=== PATIENT | female | born 1965 | race American Indian/Alaskan Native ===

== ENCOUNTER 2016-06-05 11:06 | Emergency (ER) | payer OTHER ==
[2016-06-05 12:35] VITALS: BP 140/112
--- NOTE | 2016-06-05 16:13 | Emergency Department Report ---
HPI - General Chief Complaint: Sore Throat Time Seen by Provider: 06/05/16 16:03 - HPI HPI: Patient is a 50-year-old female who presents to ED for medication refill. Patient states she has not been able to make it to her primary care physician. she will likely refill of her medications. Patient denies fever/nausea/vomiting/cough/throat pain/shortness of breath/ dizziness/headache/blurred vision ED Past Medical Hx - Past Medical History Hx Hypertension: Yes Hx Psychiatric Treatment: Yes (DEPRESSION/anxiety) - Surgical History Additional Surgical History: Tubaligation, Umbilical hernia repair - Social History Smoking Status: Never Smoker Substance Use Type: None - Medications Home Medications: Home Medications Medication Instructions Recorded Confirmed Last Taken Type Pravastatin (Nf) [Pravachol] 40 mg PO QHS #90 tablet 08/06/15 Unknown Rx amLODIPine [Norvasc] 10 mg PO QDAY #90 tablet 08/06/15 Unknown Rx traMADol [Ultram 50 MG tab] 50 mg PO Q6HR PRN #60 tablet 08/06/15 Unknown Rx Diphenhydramine HCl [Benadryl 25 mg PO PRN #30 tablet 01/28/16 Unknown Rx Allergy TAB] Labetalol [Normodyne TAB] 400 mg PO BID 90 Days 01/28/16 Unknown Rx Aspirin [Aspirin TAB] 325 mg PO QDAY 90 Days 06/05/16 Unknown Rx Clopidogrel [Plavix] 75 mg PO QDAY #90 tablet 06/05/16 Unknown Rx Hydrochlorothiazide [HCTZ] 25 mg PO QDAY #30 tablet 06/05/16 Unknown Rx Rosuvastatin (Nf) [Crestor] 20 mg PO QHS #90 tablet 06/05/16 Unknown Rx amLODIPine [Norvasc] 10 mg PO DAILY #90 tab 06/05/16 Unknown Rx ED Review of Systems ROS: Stated complaint: THROAT PAIN Other details as noted in HPI Constitutional: denies: chills, fever Eyes: denies: eye pain, eye discharge, vision change ENT: denies: ear pain, throat pain Respiratory: denies: cough, shortness of breath, SOB with exertion, SOB at rest , wheezing Cardiovascular: denies: chest pain, palpitations Endocrine: no symptoms reported Gastrointestinal: denies: abdominal pain, nausea, vomiting, diarrhea Genitourinary: denies: urgency, dysuria, discharge Musculoskeletal: denies: back pain, joint swelling, arthralgia Skin: denies: rash, lesions, pruritus Neurological: denies: headache, weakness, numbness, paresthesias, confusion, abnormal gait Psychiatric: denies: anxiety, depression Hematological/Lymphatic: denies: easy bleeding, easy bruising, swollen glands Physical Exam - Physical Exam Vital Signs: Vital Signs 06/05/16 12:24 Temperature 97.8 F Pulse Rate 54 L Respiratory 18 Rate Blood Pressure 140/112 O2 Sat by Pulse 100 Oximetry General: Patient alert and oriented 3 Physical Exam: GENERAL: Alert and oriented x3, no apparent distress, Normal Gait, atraumatic. HEAD: Head is normocephalic and a-traumatic. EYES: Extra ocular muscles are intact. Pupils are equal, round, and reactive to light and accommodation. EARS: symetrical, atraumatic, non tender, ear canal clear and moderate cerumen, tympanic membrance non inflamed. gross auditory nml bilaterally. NOSE: Nose symetrical, Nontender,Nares appeared normal. MOUTH:Mouth is well hydrated and without lesions. Tonsils nonerythematous or swollen, Uvula midline, Tongue not elevated. Mucous membranes are moist. Posterior pharynx clear, no exudate or lesions. Patent airways. NECK: Supple. Non edematous, No carotid bruits. No lymphadenopathy or thyromegaly. LUNGS: Symetrical with respiration, No wheezing, no rales or crackles, CTAB. HEART: S1, S2 present, regular rate and rhythm without murmur, no rubs, no gallops. ABDOMEN: No organomegaly was noted,Positive bowel sounds, soft, and non- distended. . Nontender to palpation on all Quadrants, NO CVA tenderness. EXTREMITIES/MUSCULOSKELETAL: No cyanosis, clubbing, rash, lesions or edema. Full ROM bilaterally. UE/LE Pulses 2+ bilaterally. NEUROLOGIC: No focal Deficit, Cranial nerves II through XII are grossly intact. No loss of sensation, PSYCHIATRIC: Mood is congruent with affect, denies suicidal or homicidal ideations. SKIN: Warm and dry, No lesions, No ulceration or induration present. ED Course Vital Signs 06/05/16 12:24 Temperature 97.8 F Pulse Rate 54 L Respiratory 18 Rate Blood Pressure 140/112 O2 Sat by Pulse 100 Oximetry ED Medical Decision Making - Medical Decision Making 50-year-old female here for medication refill. Discussed patient to follow up with her primary care physician. referrals given to follow-up with. Discussed with patient that we'll not refill her medication continuously she needs to follow up with a primary care. Critical care attestation.: If time is entered above; I have spent that time in minutes in the direct care of this critically ill patient, excluding procedure time. ED Disposition Clinical Impression: Medication refill Disposition: DISCHARGED TO HOME OR SELFCARE Is pt being admited?: No Does the pt Need Aspirin: No Condition: Stable Additional Instructions: Follow-up with her primary care physician. Take your medication medication as prescribed Prescriptions: Rosuvastatin (Nf) [Crestor] 20 mg PO QHS #90 tablet amLODIPine [Norvasc] 10 mg PO DAILY #90 tab Aspirin [Aspirin TAB] 325 mg PO QDAY 90 Days Clopidogrel [Plavix] 75 mg PO QDAY #90 tablet Hydrochlorothiazide [HCTZ] 25 mg PO QDAY #30 tablet Referrals: PRIMARY CARE, [Primary Care Provider] - 3-5 Days ELHAM CUNNINGHAM MD [Referring] - 3-5 Days BETO CANSECO MD [Referring] - 3-5 Days SINDY MIRELES MD [Referring] - 3-5 Days [facility] [Outside] - 3-5 Days [facility] [Outside] - 3-5 Days [facility] [Outside] - 3-5 Days [facility] [Outside] - 3-5 Days Forms: Work/School Release Form(ED) Time of Disposition: 16:22
== END 2016-06-05 16:34 | disposition home or self-care (01) ==
LOC: ED 11:06
DX: Z76.0 Encounter for issue of repeat prescription (principal); F32.9 Major depressive disorder, single episode, unspecified; F41.9 Anxiety disorder, unspecified; I10 Essential (primary) hypertension; Z98.51 Tubal ligation status; Z79.899 Other long term (current) drug therapy; Z79.82 Long term (current) use of aspirin; Z88.8 Allergy status to other drugs, medicaments and biological substances
CPT/HCPCS: 99282

== ENCOUNTER 2016-07-17 10:28 | Emergency (ER) | payer OTHER ==
[2016-07-17 11:12] VITALS: BP 129/92
--- NOTE | 2016-07-17 12:22 | Emergency Department Report ---
- General Chief complaint: Skin/Abscess/Foreign Body Stated complaint: BREAST PAIN Time Seen by Provider: 07/17/16 12:02 Source: patient Mode of arrival: Ambulatory Limitations: No Limitations - History of Present Illness Initial comments: pt c/o rt painful breast lump for the pat several days. pt relates torri she has a hx cystic breast issues and that it always resolves itself. Patient states this time pain is more severe. Patient denies fever, chills, or breast discharge. MD complaint: other (tender area) -: days(s) (yesterday) Tetanus Up to Date: no Severity: moderate Severity scale (0 -10): 4 Quality: aching Consistency: now resolved Associated symptoms: denies other symptoms Treatments Prior to Arrival: none - Related Data Previous Rx's Medication Instructions Recorded Last Taken Type Pravastatin (Nf) [Pravachol] 40 mg PO QHS #90 tablet 08/06/15 Unknown Rx amLODIPine [Norvasc] 10 mg PO QDAY #90 tablet 08/06/15 Unknown Rx traMADol [Ultram 50 MG tab] 50 mg PO Q6HR PRN #60 tablet 08/06/15 Unknown Rx Diphenhydramine HCl [Benadryl 25 mg PO PRN #30 tablet 01/28/16 Unknown Rx Allergy TAB] Labetalol [Normodyne TAB] 400 mg PO BID 90 Days 01/28/16 Unknown Rx Aspirin [Aspirin TAB] 325 mg PO QDAY 90 Days 06/05/16 Unknown Rx Clopidogrel [Plavix] 75 mg PO QDAY #90 tablet 06/05/16 Unknown Rx Hydrochlorothiazide [HCTZ] 25 mg PO QDAY #30 tablet 06/05/16 Unknown Rx Rosuvastatin (Nf) [Crestor] 20 mg PO QHS #90 tablet 06/05/16 Unknown Rx amLODIPine [Norvasc] 10 mg PO DAILY #90 tab 06/05/16 Unknown Rx Naproxen 500 gm MC BID #20 powder 07/17/16 Unknown Rx Allergies Allergy/AdvReac Type Severity Reaction Status Date / Time some b/p meds Allergy Unknown Uncoded 06/05/16 12:29 Abscess Boil HPI - HPI Chief Complaint: Skin/Abscess/Foreign Body Stated Complaint: BREAST PAIN Time Seen by Provider: 07/17/16 12:02 Duration: 1 Day Location: Other (right breast) History: Yes Previous History, No Fever, No Pain, No Purulent Drainage, No Numbness, No Foreign Body, No Insect Bite Home Medications: Previous Rx's Medication Instructions Recorded Last Taken Type Pravastatin (Nf) [Pravachol] 40 mg PO QHS #90 tablet 08/06/15 Unknown Rx amLODIPine [Norvasc] 10 mg PO QDAY #90 tablet 08/06/15 Unknown Rx traMADol [Ultram 50 MG tab] 50 mg PO Q6HR PRN #60 tablet 08/06/15 Unknown Rx Diphenhydramine HCl [Benadryl 25 mg PO PRN #30 tablet 01/28/16 Unknown Rx Allergy TAB] Labetalol [Normodyne TAB] 400 mg PO BID 90 Days 01/28/16 Unknown Rx Aspirin [Aspirin TAB] 325 mg PO QDAY 90 Days 06/05/16 Unknown Rx Clopidogrel [Plavix] 75 mg PO QDAY #90 tablet 06/05/16 Unknown Rx Hydrochlorothiazide [HCTZ] 25 mg PO QDAY #30 tablet 06/05/16 Unknown Rx Rosuvastatin (Nf) [Crestor] 20 mg PO QHS #90 tablet 06/05/16 Unknown Rx amLODIPine [Norvasc] 10 mg PO DAILY #90 tab 06/05/16 Unknown Rx Naproxen 500 gm MC BID #20 powder 07/17/16 Unknown Rx Allergies/Adverse Reactions: Allergies Allergy/AdvReac Type Severity Reaction Status Date / Time some b/p meds Allergy Unknown Uncoded 06/05/16 12:29 ED Review of Systems ROS: Stated complaint: BREAST PAIN Other details as noted in HPI Constitutional: no symptoms reported Eyes: as per HPI ENT: as per HPI Respiratory: denies: cough, orthopnea, shortness of breath, SOB with exertion, SOB at rest, stridor, wheezing Cardiovascular: denies: chest pain, palpitations Gastrointestinal: denies: abdominal pain, nausea, vomiting, diarrhea Skin: lesions. denies: rash, change in color, pruritus Neurological: denies: headache, paresthesias ED Past Medical Hx - Past Medical History Previous Medical History?: Yes Hx Hypertension: Yes Hx Psychiatric Treatment: Yes (DEPRESSION/anxiety) - Surgical History Past Surgical History?: Yes Additional Surgical History: Tubaligation, Umbilical hernia repair - Social History Smoking Status: Never Smoker Substance Use Type: Alcohol - Medications Home Medications: Home Medications Medication Instructions Recorded Confirmed Last Taken Type Pravastatin (Nf) [Pravachol] 40 mg PO QHS #90 tablet 08/06/15 Unknown Rx amLODIPine [Norvasc] 10 mg PO QDAY #90 tablet 08/06/15 Unknown Rx traMADol [Ultram 50 MG tab] 50 mg PO Q6HR PRN #60 tablet 08/06/15 Unknown Rx Diphenhydramine HCl [Benadryl 25 mg PO PRN #30 tablet 01/28/16 Unknown Rx Allergy TAB] Labetalol [Normodyne TAB] 400 mg PO BID 90 Days 01/28/16 Unknown Rx Aspirin [Aspirin TAB] 325 mg PO QDAY 90 Days 06/05/16 Unknown Rx Clopidogrel [Plavix] 75 mg PO QDAY #90 tablet 06/05/16 Unknown Rx Hydrochlorothiazide [HCTZ] 25 mg PO QDAY #30 tablet 06/05/16 Unknown Rx Rosuvastatin (Nf) [Crestor] 20 mg PO QHS #90 tablet 06/05/16 Unknown Rx amLODIPine [Norvasc] 10 mg PO DAILY #90 tab 06/05/16 Unknown Rx Naproxen 500 gm MC BID #20 powder 07/17/16 Unknown Rx ED Physical Exam - General Limitations: No Limitations General appearance: alert, in no apparent distress - Head Head exam: Present: atraumatic - Eye Eye exam: Present: normal appearance, PERRL, EOMI - ENT ENT exam: Present: normal exam, mucous membranes dry - Neck Neck exam: Present: normal inspection, full ROM. Absent: tenderness, meningismus, lymphadenopathy - Respiratory Respiratory exam: Present: normal lung sounds bilaterally. Absent: respiratory distress - Cardiovascular Cardiovascular Exam: Present: regular rate - GI/Abdominal GI/Abdominal exam: Present: soft. Absent: distended, tenderness, guarding, rebound, rigid - Back Exam Back exam: Present: normal inspection. Absent: CVA tenderness (R), CVA tenderness (L) - Neurological Exam Neurological exam: Present: alert, oriented X3, normal gait - Skin Skin exam: Present: warm, dry, intact, normal color. Absent: rash, erythema, vesicles - Other Other exam information: Both patient's breast examination with lobby attendant in room. There is no noted adenopathy, no areas of tenderness, warmth, or erythema were noted no mass was palpated. Tail of [place] clear. No nipple discharge. No asymmetry noted. No skin puckering noted. ED Course Vital Signs 07/17/16 11:07 Temperature 99.2 F Pulse Rate 62 Respiratory 18 Rate Blood Pressure 129/92 O2 Sat by Pulse 100 Oximetry Critical care attestation.: If time is entered above; I have spent that time in minutes in the direct care of this critically ill patient, excluding procedure time. ED Disposition Clinical Impression: Fibrocystic breast Disposition: DISCHARGED TO HOME OR SELFCARE Is pt being admited?: No Condition: Stable Instructions: Breast Mass (ED) Prescriptions: Naproxen 500 gm MC BID #20 powder Referrals: PRIMARY CARE, [Primary Care Provider] - 3-5 Days
== END 2016-07-17 12:41 | disposition home or self-care (01) ==
LOC: ED 10:28
DX: N60.11 Diffuse cystic mastopathy of right breast (principal); I10 Essential (primary) hypertension; F41.9 Anxiety disorder, unspecified; F32.9 Major depressive disorder, single episode, unspecified; Z79.82 Long term (current) use of aspirin; Z88.8 Allergy status to other drugs, medicaments and biological substances
CPT/HCPCS: 99282

== ENCOUNTER 2016-09-14 12:35 | Emergency (ER) | payer OTHER ==
[2016-09-14 12:50] VITALS: BP 121/90
--- NOTE | 2016-09-14 13:02 | Emergency Department Report ---
HPI - General Chief Complaint: Medical Clearance Time Seen by Provider: 09/14/16 12:55 - HPI HPI: Patient here for refill of prescription medications alone, patient denies any signs or symptoms. ED Past Medical Hx - Past Medical History Hx Hypertension: Yes Hx Psychiatric Treatment: Yes (DEPRESSION/anxiety) - Surgical History Additional Surgical History: Tubaligation, Umbilical hernia repair - Social History Smoking Status: Current Every Day Smoker - Medications Home Medications: Home Medications Medication Instructions Recorded Confirmed Last Taken Type Pravastatin (Nf) [Pravachol] 40 mg PO QHS #90 tablet 08/06/15 Unknown Rx amLODIPine [Norvasc] 10 mg PO QDAY #90 tablet 08/06/15 Unknown Rx traMADol [Ultram 50 MG tab] 50 mg PO Q6HR PRN #60 tablet 08/06/15 Unknown Rx Diphenhydramine HCl [Benadryl 25 mg PO PRN #30 tablet 01/28/16 Unknown Rx Allergy TAB] Labetalol [Normodyne TAB] 400 mg PO BID 90 Days 01/28/16 Unknown Rx Aspirin [Aspirin TAB] 325 mg PO QDAY 90 Days 06/05/16 Unknown Rx Clopidogrel [Plavix] 75 mg PO QDAY #90 tablet 06/05/16 Unknown Rx Hydrochlorothiazide [HCTZ] 25 mg PO QDAY #30 tablet 06/05/16 Unknown Rx Rosuvastatin (Nf) [Crestor] 20 mg PO QHS #90 tablet 06/05/16 Unknown Rx amLODIPine [Norvasc] 10 mg PO DAILY #90 tab 06/05/16 Unknown Rx Naproxen 500 gm MC BID #20 powder 07/17/16 Unknown Rx Clopidogrel Bisulfate [Plavix] 75 mg PO QDAY #30 tablet 09/14/16 Unknown Rx Hydrochlorothiazide [HCTZ] 25 mg PO QDAY #30 tablet 09/14/16 Unknown Rx Naproxen [Naprosyn TAB] 500 mg PO BID #20 tablet 09/14/16 Unknown Rx amLODIPine [Norvasc] 10 mg PO DAILY #30 tab 09/14/16 Unknown Rx ED Review of Systems ROS: Stated complaint: RX REFILL Other details as noted in HPI Constitutional: denies: chills, fever Eyes: denies: eye pain, eye discharge, vision change ENT: denies: ear pain, throat pain Respiratory: denies: cough, shortness of breath, wheezing Cardiovascular: denies: chest pain, palpitations Endocrine: no symptoms reported Gastrointestinal: denies: abdominal pain, nausea, diarrhea Genitourinary: denies: urgency, dysuria, discharge Musculoskeletal: denies: back pain, joint swelling, arthralgia Skin: denies: rash, lesions Neurological: denies: headache, weakness, paresthesias Psychiatric: denies: anxiety, depression Hematological/Lymphatic: denies: easy bleeding, easy bruising Physical Exam - Physical Exam Vital Signs: Vital Signs 09/14/16 12:45 Temperature 97.7 F Pulse Rate 66 Respiratory 16 Rate Blood Pressure 121/90 O2 Sat by Pulse 100 Oximetry General: Patient awake alert and oriented normotensive normal cardiac, afebrile well- hydrated was cleared lung sounds bilaterally on estrada. Abdomen soft nontender. Skin clear, no rashes no lesions no diaphoresis. Patient has no focal neuro deficit has normal gait and speech. ED Course Vital Signs 09/14/16 12:45 Temperature 97.7 F Pulse Rate 66 Respiratory 16 Rate Blood Pressure 121/90 O2 Sat by Pulse 100 Oximetry Critical care attestation.: If time is entered above; I have spent that time in minutes in the direct care of this critically ill patient, excluding procedure time. ED Disposition Clinical Impression: Refill clinic medication management patient Disposition: DISCHARGED TO HOME OR SELFCARE Is pt being admited?: No Condition: Stable Prescriptions: amLODIPine [Norvasc] 10 mg PO DAILY #30 tab Clopidogrel Bisulfate [Plavix] 75 mg PO QDAY #30 tablet Hydrochlorothiazide [HCTZ] 25 mg PO QDAY #30 tablet Naproxen [Naprosyn TAB] 500 mg PO BID #20 tablet Referrals: NICO GONSALEZ MD [Staff Physician] - 3-5 Days
== END 2016-09-14 13:24 | disposition home or self-care (01) ==
LOC: ED 12:35
DX: Z76.0 Encounter for issue of repeat prescription (principal); F32.9 Major depressive disorder, single episode, unspecified; F41.9 Anxiety disorder, unspecified; F17.200 Nicotine dependence, unspecified, uncomplicated; I10 Essential (primary) hypertension; Z88.8 Allergy status to other drugs, medicaments and biological substances

== ENCOUNTER 2016-10-19 08:45 | Emergency (ER) | payer OTHER ==
[2016-10-19 08:57] VITALS: BP 127/90
--- NOTE | 2016-10-19 12:16 | Emergency Department Report ---
Entered by KATHERINE SCHMIDT, acting as scribe for BRADY WALKER PA. HPI - General Chief Complaint: Urogenital-Female Time Seen by Provider: 10/19/16 11:35 - HPI HPI: 51 y/o female presents to the ED c/o bilateral breast pain x 3 weeks. Associated symptoms include changes in skin color to breasts but she denies discharge from nipples, fever and chills. Pain is described as sharp. Here for b /p med and other meds refill (out for one day). No alleviating or aggravating factors. Allergic to some b/p meds. Last mammogram 1 year ago. Patient says she usually comes here and get her medication refill although she has access to primary care physician. ED Past Medical Hx - Past Medical History Previous Medical History?: Yes Hx Hypertension: Yes Hx Psychiatric Treatment: Yes (DEPRESSION/anxiety) - Surgical History Past Surgical History?: Yes Additional Surgical History: Tubaligation, Umbilical hernia repair - Family History Family history: hypertension - Social History Smoking Status: Former Smoker Substance Use Type: Non Opiate Pain, Prescribed - Medications Home Medications: Home Medications Medication Instructions Recorded Confirmed Last Taken Type Pravastatin (Nf) [Pravachol] 40 mg PO QHS #90 tablet 08/06/15 Unknown Rx amLODIPine [Norvasc] 10 mg PO QDAY #90 tablet 08/06/15 Unknown Rx traMADol [Ultram 50 MG tab] 50 mg PO Q6HR PRN #60 tablet 08/06/15 Unknown Rx Diphenhydramine HCl [Benadryl 25 mg PO PRN #30 tablet 01/28/16 Unknown Rx Allergy TAB] Labetalol [Normodyne TAB] 400 mg PO BID 90 Days 01/28/16 Unknown Rx Aspirin [Aspirin TAB] 325 mg PO QDAY 90 Days 06/05/16 Unknown Rx Clopidogrel [Plavix] 75 mg PO QDAY #90 tablet 06/05/16 Unknown Rx Hydrochlorothiazide [HCTZ] 25 mg PO QDAY #30 tablet 06/05/16 Unknown Rx Rosuvastatin (Nf) [Crestor] 20 mg PO QHS #90 tablet 06/05/16 Unknown Rx amLODIPine [Norvasc] 10 mg PO DAILY #90 tab 06/05/16 Unknown Rx Naproxen 500 gm MC BID #20 powder 07/17/16 Unknown Rx Naproxen [Naprosyn TAB] 500 mg PO BID #20 tablet 09/14/16 Unknown Rx Clopidogrel Bisulfate [Plavix] 75 mg PO QDAY #30 tablet 10/19/16 Unknown Rx Hydrochlorothiazide [HCTZ] 25 mg PO QDAY #30 tablet 10/19/16 Unknown Rx amLODIPine [Norvasc] 10 mg PO DAILY #30 tab 10/19/16 Unknown Rx ED Review of Systems ROS: Stated complaint: BREAST PAIN/MED REFILL Other details as noted in HPI Comment: All other systems reviewed and negative Constitutional: no symptoms reported, other. denies: chills, fever Respiratory: no symptoms reported Cardiovascular: denies: chest pain, palpitations, edema, syncope Gastrointestinal: denies: abdominal pain, nausea, vomiting, diarrhea Musculoskeletal: other (bilateral breast pain). denies: back pain, arthralgia Skin: other (changes in skin color to breasts, no discharge from nipples ). denies: rash Neurological: denies: headache, weakness, confusion, abnormal gait, vertigo Physical Exam - Physical Exam Vital Signs: Vital Signs 10/19/16 08:52 Temperature 98.2 F Pulse Rate 69 Respiratory 18 Rate Blood Pressure 127/90 O2 Sat by Pulse 100 Oximetry General: This is a 51-year-old female well-nourished well-developed in no acute distress. Physical Exam: Head: Normocephalic atraumatic Mouth: Moist, no pharyngeal exudate or erythema. Uvula is midline and oral airway is patent. No facial swelling. No peritonsillar abscesses. Neck: Supple, no C-spine tenderness, no tracheal deviation. Nontender to palpate. no adenopathy Abdomen: Soft, nontender to palpate in all quadrants, normal bowel sounds in all quadrant and negative CVA tenderness bilaterally. Neurological: GCS of 15, alert and oriented 3. Speech is clear and fluid. Normal gait. No motor or sensory deficit. Normal reflexes. No facial drooping. No pronator drift and negative Romberg. Eyes: Bilateral pupils equal and reactive to light, bilateral EOM intact. Bilateral sclera and conjunctiva without injection. Normal accommodation. No nystagmus BREAST EXAM: Bilateral breast nontender to palpate. Nipple and areola with normal inspection. No nipple discharge or change in skin around nipples and Aerola both breast. No mass or nodule felt with examination Lungs: Clear to auscultate bilaterally no rhonchi wheezes or rales. Normal work of breathing extremity; No CCE. +2 pulses. No neurovascular compromise Cardiovascular: S1-S2, regular rate rhythm. No murmurs. Skin: clean Dry and intact no rash no lesions Psych: Normal mood and behavior change in skin around ED Course Vital Signs 10/19/16 08:52 Temperature 98.2 F Pulse Rate 69 Respiratory 18 Rate Blood Pressure 127/90 O2 Sat by Pulse 100 Oximetry - Reevaluation(s) Reevaluation #1: 10/19/16 12:04 Patient stable throughout ED stay ED Medical Decision Making - Medical Decision Making ED course: here to get breast checked because she is complaining of bilateral breast pain and also to get medication refill and multiple medication. Patient does have access to primary care but continues to come to the emergency room to get medication refill. I discussed the patient that she will need to call a primary care physician and I'll to refer her to one to manage her chronic medical problems. Patient was not happy and said that she' ll just keep coming to the hospital for her refill. I discussed the patient that I'll refer her to [facility] [place] [facility] which her primary care clinic she can call and Friday to schedule appointment for management of chronic medical problems. I also discussed with her that they can refer her for outpatient mammogram to follow-up bilateral breast pain. She says she had a mammogram last year that was normal. Patient discharged home in stable condition with prescription for Plavix 75 mg daily hydrochloride 25 mg daily and amlodipine 10 mg daily. Critical care attestation.: If time is entered above; I have spent that time in minutes in the direct care of this critically ill patient, excluding procedure time. ED Disposition Clinical Impression: Medication refill Disposition: [id number] TO HOME OR SELFCARE Is pt being admited?: No Does the pt Need Aspirin: No Condition: Stable Instructions: Mammogram (ED), Hypertension (ED), Transient Ischemic Attack (ED) , Self Care Measures After a Stroke (ED) Additional Instructions: Please follow-up with outside medical clinic. Refer to discharge paperwork for phone number and address of clinic and call and Friday to schedule appointment for management of chronic medical problems. Medical clinic skin also schedule an outpatient mammogram since you have breast pain. You will need to get your medication refill at a primary care office visit as you'll need to have blood work and other monitoring while on multiple medication. Also for consistency of care unit need to have a primary care physician who can keep track of. Lab work and vital signs. Prescriptions: amLODIPine [Norvasc] 10 mg PO DAILY #30 tab Clopidogrel Bisulfate [Plavix] 75 mg PO QDAY #30 tablet Hydrochlorothiazide [HCTZ] 25 mg PO QDAY #30 tablet Referrals: [facility] [Outside] - 2-3 Days [facility] [Outside] - 2-3 Days Forms: Work/School Release Form(ED) This documentation as recorded by the BRAYAN wilder ELIZABETH,accurately reflects the service I personally performed and the decisions made by me,BRADY WALKER PA.
== END 2016-10-19 12:20 | disposition home or self-care (01) ==
LOC: ED 08:45
DX: Z76.0 Encounter for issue of repeat prescription (principal); I10 Essential (primary) hypertension; F32.9 Major depressive disorder, single episode, unspecified; F31.9 Bipolar disorder, unspecified; Z87.891 Personal history of nicotine dependence; Z88.8 Allergy status to other drugs, medicaments and biological substances
CPT/HCPCS: 99282

== ENCOUNTER 2017-09-08 10:40 | Emergency (ER) | payer OTHER ==
[2017-09-08 10:45] VITALS: BP 130/97
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
[2017-09-08] MEDS ORDERED: DELTASONE PO ONE (12:02)
== END 2017-09-08 12:05 | disposition home or self-care (01) ==
LOC: ED 10:40
DX: L30.8 Other specified dermatitis (principal); R21 Rash and other nonspecific skin eruption; I10 Essential (primary) hypertension; F32.9 Major depressive disorder, single episode, unspecified; F41.9 Anxiety disorder, unspecified; Z86.73 Personal history of transient ischemic attack (TIA), and cerebral infarction without residual deficits; Z98.51 Tubal ligation status
CPT/HCPCS: 99282; J7512

== ENCOUNTER 2019-11-27 12:32 | Emergency (ER) | payer SELFPAY ==
[2019-11-27 12:44] VITALS: BP 154/96
--- NOTE | 2019-11-27 12:55 | Emergency Department Report ---
Chief Complaint: Medical Clearance Stated Complaint: MED REFILL Time Seen by Provider: 11/27/19 12:48 - HPI History of Present Illness: This is a pleasant 54-year-old female presents the emergency department requesting medication refill. Patient reports she has been out of her blood pressure medications for the past few days and has been unable to follow-up with her primary care doctor. She states their office was closed yesterday and she cannot follow-up till Friday. She denies any symptoms at this time. Specifically denying chest pain, fever, chills, night sweats, headache, dizziness, blurry vision, shortness of breath, nausea, vomiting, diarrhea, weakness or any other associated symptoms. - ROS Review of Systems: See HPI - Exam Vital Signs: Vital Signs 11/27/19 12:41 Temperature 98.5 F Pulse Rate 58 L Respiratory 20 Rate Blood Pressure 154/96 O2 Sat by Pulse 98 Oximetry Physical Exam: GENERAL APPEARANCE: Well-developed, well-nourished, no acute distress HEENT: Normocephalic and atraumatic. No scleral icterus. Pupils are equal, round, and reactive to light and accommodation. No conjunctival injection is noted. Oropharynx is clear. Mouth revealed good dentition, no lesions. Tympanic membranes are clear. NECK: Supple. Trachea is midline. No evidence of thyroid enlargement. No lymphadenopathy or tenderness. CHEST: Symmetric. Nontender to palpation. LUNGS: Breath sounds are equal and clear bilaterally. No wheezes, rhonchi, or rales. HEART: Regular rate and rhythm with normal S1 and S2. No murmurs, gallops, or rubs. BREASTS: Symmetrical. No skin or nipple retractions. No nipple discharges or masses. ABDOMEN: Soft, flat, and benign. No mass, tenderness, guarding, or rebound. No organomegaly or hernia. Bowel sounds are present. No CVA tenderness or flank mass. GENITOURINARY: Deferred RECTAL: Deferred EXTREMITIES: No cyanosis, clubbing, or edema. No lower extreme edema, negative Homans sign bilaterally NEUROLOGIC: No focal sensory or motor deficits are noted. Gait is normal. Cranial nerves II through XII are intact. Deep tendon reflexes are intact. PSYCHIATRIC: The patient is awake, alert, and oriented x3. Recent and remote memory is intact. Appropriate mood and affect. SKIN: Warm, dry, and well perfused. Good turgor. No lesions, nodules or rashes are noted. No onychomycosis. LYMPHATICS: No cervical, axillary, or groin adenopathy is noted. MSE screening note: Focused history and physical exam performed. Due to findings the following was ordered: Patient instructed follow-up with her primary care doctor, she had asymptomatic hypertension and vitals are stable. Recommend strict return precautions for any change or worsening symptoms. She was given outpatient resources for urgent care, [facility], primary care doctor and [facility] for these refills. ED Disposition for MSE Clinical Impression: Medication refill Disposition: DC-01 TO HOME OR SELFCARE Is pt being admited?: No Condition: Stable Referrals: [facility] [Provider Group] - 3-5 Days [facility] [Outside] - 3-5 Days Time of Disposition: 12:54
== END 2019-11-27 12:55 | disposition home or self-care (01) ==
LOC: ED 12:32
DX: Z76.0 Encounter for issue of repeat prescription (principal); Z53.21 Procedure and treatment not carried out due to patient leaving prior to being seen by health care provider